=== PATIENT | male | born 1985 | race Two or more races ===

== ENCOUNTER 2020-02-10 13:03 | Emergency (ER) | payer MEDICAID ==
[~2020-02-10] VITALS: Ht 185.4 cm; Wt 99.8 kg
[2020-02-10] MEDS ORDERED: LOPE2CAP PO (14:40)
[2020-02-10] MEDS ORDERED: ONDA8TAB6 PO (14:40)
[2020-02-10 14:56] VITALS: BP 126/81
== END 2020-02-10 15:01 | disposition home or self-care (01) ==
LOC: ER 13:04
DX: K52.89 Other specified noninfective gastroenteritis and colitis (principal); R19.7 Diarrhea, unspecified; R11.2 Nausea with vomiting, unspecified; R10.84 Generalized abdominal pain; Z79.899 Other long term (current) drug therapy
CPT/HCPCS: 99283

== ENCOUNTER 2021-11-23 10:06 | Emergency (ER) | payer MEDICAID ==
[~2021-11-23] VITALS: Ht 185.4 cm; Wt 100.0 kg
[~2021-11-23 10:06] MED LIST: LOPE2CAP PO; ONDA8TAB6 PO
[2021-11-23 10:34] VITALS: BP 126/84
[2021-11-23] MEDS ORDERED: ketorolac trometh. 30mg/ml inj. IM ONE (12:25)
== END 2021-11-23 13:21 | disposition home or self-care (01) ==
LOC: ER 10:06
DX: M25.562 Pain in left knee (principal); Z79.899 Other long term (current) drug therapy
CPT/HCPCS: 73564; 96372; 99283; J1885